=== PATIENT | female | born 1990 | race Asian ===

== ENCOUNTER 2019-04-30 16:01 | Emergency (ER) | payer OTHER ==
--- NOTE | 2019-04-30 16:18 | PDOC ---
Rapid Medical Evaluation Time Seen by Provider: 04/30/19 16:13 Medical Evaluation: 04/30/19 16:13 I have performed a brief in-person evaluation of this patient. The patient presents with a chief complaint of: n/v that started at 1pm today. Also reports vague chest and abd pain. No diarrhea or f/c. Pt admits to doing GHB, crystal meth and "ethyl chloride spray" last night. States she usually has these symptoms when she does this cocktail of drugs and usually has to come to the ED. 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 Discharge Disposition - Diagnosis Nausea and vomiting Qualifiers: Vomiting type: unspecified Vomiting Intractability: non-intractable Qualified Code(s): R11.2 - Nausea with vomiting, unspecified - Referrals - Patient Instructions - Post Discharge Activity
[2019-04-30 16:19] VITALS: TEMP 99; BMI 21.7
--- NOTE | 2019-04-30 16:43 | PDOC ---
History of Present Illness - General Chief Complaint: Nausea/Vomiting Stated Complaint: NAUSEA/VOMITING Time Seen by Provider: 04/30/19 16:13 History Source: Patient Exam Limitations: No Limitations - History of Present Illness Initial Comments: 04/30/19 17:14 29 year old female with PMH GHB abuse, meth abuse presented to ED for nausea/ vomiting since last night. Pt reported that she ingested GHB and meth last night , and frequently when she ingests too much GBH she will have nausea/vomiting. Pt was unable to tolerate any solids or liquids PO, bringing her to the Emergency Department. Past History - Past Medical History Allergies/Adverse Reactions: Allergies Allergy/AdvReac Type Severity Reaction Status Date / Time No Known Allergies Allergy Verified 04/30/19 16:20 Home Medications: Ambulatory Orders NK [No Known Home Medication] 04/30/19 COPD: No Other medical history: gender transition (male to female) - Suicide/Smoking/Psychosocial Hx Smoking History: Never smoked Hx Alcohol Use: No Drug/Substance Use Hx: Yes Review of Systems - Review of Systems Able to Perform ROS?: Yes Comments:: 04/30/19 16:48 General: denied fever, chills, generalized weakness. HEENT: denied sore throat, rhinorrhea, ear pain. Heart: denied chest pain, palpitations, syncope, diaphoresis. Respiratory: denied shortness of breath, cough, sputum production, hemoptysis. Abdomen: admitted to abdominal pain, nausea, vomiting. denied diarrhea, constipation, blood in stool. : denied dysuria, increased urinary frequency, hematuria, urinary incontinence , flank pain. Back: denied back pain. Musculoskeletal: denied joint pain, muscle pain, joint swelling. Neurological: denied headache, dizziness, numbness, tingling, weakness. Skin: denied rash, laceration, abrasion. *Physical Exam - Vital Signs Last Vital Signs Temp Pulse Resp BP Pulse Ox 99 F 114 H 18 130/80 100 04/30/19 16:16 04/30/19 16:16 04/30/19 16:16 04/30/19 16:16 04/30/19 16:16 - Physical Exam Comments: 04/30/19 16:48 Constitutional: Well-nourished, Well-developed, appearing stated age. HEENT: head is normocephalic, atraumatic. EOMI. PERRLA. colored contacts. wearing a colored wig. Neck: supple. Full ROM. Heart: regular rhythm. no murmurs, rubs or gallops. Lungs: clear to auscultation bilaterally. no crackles, rhonchi or wheezing. no stridor. Abdomen: soft, flat. tenderness to palpation of epigastrium. normal bowel sounds. no rebound, guarding, masses. Extremities: peripheral pulses intact. no lower extremity edema. Neurological: CN 2-12 grossly intact. moves all four extremities. Psych: awake, alert, oriented x3. follows commands. answers questions appropriately. ED Treatment Course - LABORATORY CBC & Chemistry Diagram: 04/30/19 16:55 04/30/19 16:55 Medical Decision Making - Medical Decision Making 04/30/19 16:50 29 year old female with no PMH presented to ED for nausea/vomiting after ingesting GHB and meth last night. Pt reported similar symptoms with GHB ingestion before. Initial Vital Signs Temp Pulse Resp BP Pulse Ox 99 F 114 H 18 130/80 100 04/30/19 16:16 04/30/19 16:16 04/30/19 16:16 04/30/19 16:16 04/30/19 16:16 Afebrile. Tachycardic. No tachypnea. Mild hypertension. No hypoxia on room air. Labs ordered: CBC, CMP, lipase, troponin, UA, serum test, UDS Medications ordered: pepcid, maalox, zofran 4 mg IV once, normal saline bolus 1000 cc once Imaging ordered: none 04/30/19 17:28 EKG performed at 1720: rate 101, regular rhythm, normal axis, normal intervals, no acute ST changes. 04/30/19 18:11 CBC WBC 9.1 K/mm3 (4.0-10.0) 04/30/19 16:55 RBC 4.32 M/mm3 (3.60-5.2) 04/30/19 16:55 Hgb 14.2 GM/dL (10.7-15.3) 04/30/19 16:55 Hct 41.8 % (32.4-45.2) 04/30/19 16:55 MCV 96.7 fl (80-96) H 04/30/19 16:55 MCH 32.8 pg (25.7-33.7) 04/30/19 16:55 MCHC 33.9 g/dl (32.0-36.0) 04/30/19 16:55 RDW 13.4 % (11.6-15.6) 04/30/19 16:55 Plt Count 201 K/MM3 (134-434) 04/30/19 16:55 MPV 8.1 fl (7.5-11.1) 04/30/19 16:55 Absolute Neuts (auto) 7.2 K/mm3 (1.5-8.0) 04/30/19 16:55 Neutrophils % 79.6 % (42.8-82.8) 04/30/19 16:55 Lymphocytes % 12.7 % (8-40) 04/30/19 16:55 Monocytes % 7.5 % (3.8-10.2) 04/30/19 16:55 Eosinophils % 0.0 % (0-4.5) 04/30/19 16:55 Basophils % 0.2 % (0-2.0) 04/30/19 16:55 Nucleated RBC % 0 % (0-0) 04/30/19 16:55 No leukocytosis. No anemia. CMP Sodium 138 mmol/L (136-145) 04/30/19 16:55 Potassium 3.8 mmol/L (3.5-5.1) 04/30/19 16:55 Chloride 104 mmol/L (98-107) 04/30/19 16:55 Carbon Dioxide 26 mmol/L (21-32) 04/30/19 16:55 Anion Gap 8 MMOL/L (8-16) 04/30/19 16:55 BUN 9.5 mg/dL (7-18) 04/30/19 16:55 Creatinine 0.9 mg/dL (0.55-1.3) 04/30/19 16:55 Est GFR (CKD-EPI)AfAm 100.14 04/30/19 16:55 Est GFR (CKD-EPI)NonAf 86.41 04/30/19 16:55 Random Glucose 89 mg/dL (74-106) 04/30/19 16:55 Calcium 9.3 mg/dL (8.5-10.1) 04/30/19 16:55 Total Bilirubin 0.8 mg/dL (0.2-1) 04/30/19 16:55 AST 23 U/L (15-37) 04/30/19 16:55 ALT 28 U/L (13-61) 04/30/19 16:55 Alkaline Phosphatase 58 U/L (45-117) 04/30/19 16:55 Troponin I < 0.02 ng/ml (0.00-0.05) 04/30/19 16:55 Total Protein 8.1 g/dl (6.4-8.2) 04/30/19 16:55 Albumin 4.7 g/dl (3.4-5.0) 04/30/19 16:55 Lipase 81 U/L (73-393) 04/30/19 16:55 No electrolyte abnormalities. No LORENZO. No transaminitis. Troponin wnl Lipase wnl Urine Test Results Urine Color Dk yellow 04/30/19 16:55 Urine Appearance Clear 04/30/19 16:55 Urine pH 8.5 (5.0-8.0) H 04/30/19 16:55 Ur Specific [place] 1.020 (1.010-1.035) 04/30/19 16:55 Urine Protein Negative (NEGATIVE) 04/30/19 16:55 Urine Glucose (UA) Negative (NEGATIVE) 04/30/19 16:55 Urine Ketones 3+ (NEGATIVE) H 04/30/19 16:55 Urine Blood Negative (NEGATIVE) 04/30/19 16:55 Urine Nitrite Negative (NEGATIVE) 04/30/19 16:55 Urine Bilirubin Negative (NEGATIVE) 04/30/19 16:55 Ur Leukocyte Esterase Trace (NEGATIVE) 04/30/19 16:55 WBC<5 Pt asymptomatic. Will not treat. UDS positive for amphetamines. 04/30/19 18:22 Beta quant negative. Pt informed of results. Pt reported improvement of symptoms. Pt given PO challenge. 04/30/19 19:00 Vital Signs Temperature 99 F 04/30/19 16:16 Pulse Rate 88 04/30/19 19:00 Respiratory Rate 18 04/30/19 19:00 Blood Pressure 136/78 04/30/19 19:00 O2 Sat by Pulse Oximetry (%) 99 04/30/19 19:00 Tachycardia improved with fluid hydration. Afebrile. No tachypnea. Mild hypertension. No hypoxia on room air. Pt tolerated PO challenge. Pt discharged. *DC/Admit/Observation/Transfer Diagnosis at time of Disposition: Nausea and vomiting Qualifiers: Vomiting type: unspecified Vomiting Intractability: non-intractable Qualified Code(s): R11.2 - Nausea with vomiting, unspecified - Discharge Dispostion Disposition: HOME Condition at time of disposition: Improved Decision to Admit order: No - Referrals Referrals: Bassam Gao MD [Staff Physician] - Myles Velez MD [Staff Physician] - - Patient Instructions Printed Discharge Instructions: DI for Drug Abuse and Drug Addiction, DI for Vomiting -- Adult Additional Instructions: You were seen today for nausea/vomiting. Your lab work was normal. Follow up with your primary care doctor within 3 days. Your care is not complete until you follow up. I have given you a referral for two of our physicians at our [facility] should you need it. Eat bland foods for the next 24 hours - bread, rice, toast, applesauce, plain chicken, clear soup Return to the Emergency Department for increasing pain, shortness of breath, fever, chest pain, vomiting, vomiting blood or any other new, worsening or concerning symptoms. - Post Discharge Activity
[2019-04-30 17:13] LABS: BASO % 0.2 % (0-2.0); HEMATOCRIT 41.8 % (32.4-45.2); HEMOGLOBIN 14.2 GM/dL (10.7-15.3); LYMPH % 12.7 % (8-40); MCH 32.8 pg (25.7-33.7); MCHC 33.9 g/dl (32.0-36.0); MEAN CELL VOLUME 96.7 fl (80-96); MEAN PLT VOLUME 8.1 fl (7.5-11.1); MONO % 7.5 % (3.8-10.2); NEUT % 79.6 % (42.8-82.8); PLATELET COUNT 201 K/MM3 (134-434); RBC 4.32 M/mm3 (3.60-5.2); RDW 13.4 % (11.6-15.6); WHITE BLOOD COUNT 9.1 K/mm3 (4.0-10.0)
[2019-04-30] MEDS ORDERED: SODIUM CHLORIDE 1,000 ML IV STA (17:15)
[2019-04-30] MEDS ORDERED: MAG HYDROX/AL HYDROX/SIMETH 30 ML UNIT-DOSE CUP PO ONE (17:15)
[2019-04-30] MEDS ORDERED: FAMOTIDINE 20 MG/50 ML IVPB 20 MG/50 ML MG IVPB ONE ×2 (17:15→17:24)
[2019-04-30] MEDS ORDERED: ONDANSETRON 4 MG/2 ML VIAL IVPUSH ONE (17:15)
[2019-04-30 17:16] LABS: EPI CELLS 0.9 /HPF (0-5/HPF); HYALINE CASTS 2 /lpf (0-8); PH,URINE 8.5 (5.0-8.0); URINE APPEARANCE CLEAR; URINE BACTERIA 4.6 /hpf (NEGATIVE); URINE BILIRUBIN NEGATIVE (NEGATIVE); URINE COLOR DK YELLOW; URINE GLUCOSE (UA) NEGATIVE (NEGATIVE); URINE KETONE 3+ (NEGATIVE); URINE LEUK ESTERASE TRACE (NEGATIVE); URINE NITRITE NEGATIVE (NEGATIVE); URINE PROTEIN NEGATIVE (NEGATIVE); URINE RBC 1 /hpf (0-4); URINE WBC 3 /hpf (0-5)
[2019-04-30] MEDS ORDERED: MAG HYDROX/AL HYDROX/SIMETH 30 ML UNIT-DOSE CUP ONE (17:24)
[2019-04-30] MEDS ORDERED: ONDANSETRON 4 MG/2 ML VIAL ONE (17:24)
[2019-04-30 17:49] LABS: ALBUMIN 4.7 g/dl (3.4-5.0); ALK PHOS 58 U/L (45-117); ANION GAP 8 MMOL/L (8-16); BILIRUBIN,TOTAL 0.8 mg/dL (0.2-1); BLOOD UREA NITROGEN 9.5 mg/dL (7-18); CALCIUM 9.3 mg/dL (8.5-10.1); CHLORIDE 104 mmol/L (98-107); CO2 26 mmol/L (21-32); CREATININE 0.9 mg/dL (0.55-1.3); GLUCOSE,RANDOM 89 mg/dL (74-106); POTASSIUM 3.8 mmol/L (3.5-5.1); SGOT/AST 23 U/L (15-37); SGPT/ALT 28 U/L (13-61); SODIUM 138 mmol/L (136-145); TOT PROT 8.1 g/dl (6.4-8.2)
[2019-04-30 17:53] LABS: COCAINE, UR NEGATIVE ng/ml (CUTOFF=300); METHADONE, UR NEGATIVE ng/ml (CUTOFF=300); OPIATES, URI NEGATIVE ng/ml (CUTOFF=300); PHENCYCLIDINE,URINE NEGATIVE ng/ml (CUTOFF=25); URINE BARBITURATES NEGATIVE ng/ml (CUTOFF=200); URINE BENZODIAZEPINES NEGATIVE ng/ml (CUTOFF=200)
[2019-04-30 17:59] LABS: URINE AMPHETAMINES POSITIVE ng/ml (CUTOFF=500)
[2019-04-30 19:01] VITALS: BP 136/78; PULSE 88
--- NOTE | 2019-04-30 19:04 | PDOC ---
Documentation entered by Melo Wayne SCRIBE, acting as scribe for Catie Espinoza MD. Catie Espinoza MD: This documentation has been prepared by the Tone howard Daniel, SCRIBE, under my direction and personally reviewed by me in its entirety. I confirm that the documentation accurately reflects all work, treatment, procedures, and medical decision making performed by me. Attending Attestation - Resident Resident Name: Almaz Cifuentes - ED Attending Attestation I have performed the following: I have examined & evaluated the patient, The case was reviewed & discussed with the resident, I agree w/resident's findings & plan, Exceptions are as noted - HPI HPI: 04/30/19 17:56 The patient is a 29 year old male to female transgender with no significant past medical history here today for evaluation of nausea and vomiting. The patient reports that she uses GHB and smokes meth. She reports taking a "small amount" of GHB and meth last night and experienced nausea and vomiting around 1 AM with associated epigastric pain. She vomited a total of 4 times and came to the ED for further evaluation as she could not keep anything down. Reports vomiting was the color of what she tried to eat or drink. NBNB in nature. She notes having similar episodes in the past when she took too much GHB. Patient denies headache, lightheadedness, focal weakness/numbness. Denies fever , chills. Denies chest pain, shortness of breath. Denies diarrhea. Allergies: NKA - Physicial Exam PE: 04/30/19 17:57 GENERAL: Awake, alert, and fully oriented, in no acute distress. Very pleasant. HEAD: No signs of trauma EYES: PERRLA, EOMI, sclera anicteric, conjunctiva clear ENT: Oropharynx clear without exudates. Moist mucosa NECK: Normal ROM, supple, no lymphadenopathy, JVD, or masses LUNGS: Breath sounds equal, clear to auscultation bilaterally. No wheezes, and no crackles HEART: Regular rate and rhythm, normal S1 and S2, no murmurs, rubs or gallops ABDOMEN: Soft, nontender, normoactive bowel sounds. No guarding, no rebound. No masses. No CVAT EXTREMITIES: Normal range of motion, no edema. No clubbing or cyanosis. No cords , erythema, or tenderness BACK: No midline spinal tenderness in cervical/thoracic/lumbar region NEUROLOGICAL: Normal speech, cranial nerves intact, equal strength and sensation b/l SKIN: Warm, Dry, normal turgor, no rashes or lesions noted. - Medical Decision Making 04/30/19 19:00 29yo F presents to the ED with 4 episodes of vomiting after using GHB and meth Initial HR elevated to 114 Pt has had similar symptoms many times before in the setting of using those drugs together She reported epigastric abd pain, but no tenderness on exam Labs/UA wnl EKG with QT 435 Pt feeling much better after zofran, fluids, maalox, and pepcid She is keeping crackers and water down Rpt HR is 88 Pt is clinically stable for DC home Heart Score/ECG Review #1 04/30/19 19:02 Twelve-lead EKG was performed and reviewed by me. Sinus tachycardia, rate 101. Normal axis and intervals. No ST elevations or T-wave inversions.
--- NOTE | 2019-05-01 12:50 | EKG ---
Test Reason : Blood Pressure : / mmHG Vent. Rate : 101 BPM Atrial Rate : 101 BPM P-R Int : 178 ms QRS Dur : 082 ms QT Int : 336 ms P-R-T Axes : 080 089 066 degrees QTc Int : 435 ms SINUS TACHYCARDIA POSSIBLE LEFT ATRIAL ENLARGEMENT NO PREVIOUS ECGS AVAILABLE Confirmed by JOSÉ MIGUEL GERARD MD ([id number]) on 05/01/2019 12:50:27 PM Referred By: Confirmed By:JOSÉ MIGUEL GERARD MD
== END 2019-04-30 19:05 | disposition home or self-care (01) ==
LOC: JER 16:01
PROC: 3E033GC Introduction of Other Therapeutic Substance into Peripheral Vein, Percutaneous Approach (ICD-10-PCS; principal; 2019-04-30)
PROC: 3E033GC Introduction of Other Therapeutic Substance into Peripheral Vein, Percutaneous Approach (ICD-10-PCS; 2019-04-30)
DX: R11.2 Nausea with vomiting, unspecified (principal); F15.10 Other stimulant abuse, uncomplicated; F64.0 Transsexualism
CPT/HCPCS: 36415; 80053; 80307; 81003; 83690; 84484; 84702; 85025; 93005; 93010; 99282-25; J7030